=== PATIENT | female | born 1960 | race Caucasian/White ===

== ENCOUNTER 2018-08-29 09:46 | Emergency (ER) | payer OTHER ==
[2018-08-29 10:36] VITALS: BP 109/62
--- NOTE | 2018-08-29 10:59 | UC ---
Lower Extremity/Ankle HPI - HPI Summary HPI Summary: Pt presents with c/o left upper inner thigh "hard lump", erythema, tenderness that woke pt from sleep last night. Pt also reports that she has left posterior calf pain. Pt has "Lots of " lower extremity varicose veins and no hx of clotting disorder. Denies injury or recent travel. pt states that at work she either sits or stands for prolonged periods of time. - History of Current Complaint Chief Complaint: UCGeneralIllness Stated Complaint: LEFT THIGH COMPLAINT Time Seen by Provider: 08/29/18 10:40 Hx Obtained From: Patient ?: No Onset/Duration: Sudden Onset, Still Present Severity Initially: Moderate Severity Currently: Moderate Pain Intensity: 3 Aggravating Factor(s): Other - tough Alleviating Factor(s): Nothing Able to Bear Weight: Yes - Risk Factors Gout Risk Factors: Age Over 40, Obesity DVT Risk Factors: Smoking Septic Arthritis Risk Factor: Negative - Allergies/Home Medications Allergies/Adverse Reactions: Allergies Allergy/AdvReac Type Severity Reaction Status Date / Time Sulfa (Sulfonamide Allergy Rash Verified 08/29/18 10:33 Antibiotics) Home Medications: Home Medications Ibuprofen 600 mg PO Q12HR 08/29/18 [History Confirmed 08/29/18] Lisinopril 20 mg PO DAILY 08/29/18 [History Confirmed 08/29/18] Metformin HCl [Fortamet] 500 mg PO BID 08/29/18 [History Confirmed 08/29/18] Pravastatin Sodium 20 mg PO DAILY 08/29/18 [History Confirmed 08/29/18] PMH/Surg Hx/FS Hx/Imm Hx Previously Healthy: Yes - Surgical History Surgical History: Yes Surgery Procedure, Year, and Place: 2 C-SECTIONS. HYSTERECTOMY - Family History Known Family History: Positive: Cardiac Disease - Social History Occupation: Employed Full-time Lives: With Family Alcohol Use: Occasionally Substance Use Type: None Smoking Status (MU): Heavy Every Day Tobacco Smoker Amount Used/How Often: 1 PPD Have You Smoked in the Last Year: Yes Household Exposure Type: Cigarettes Review of Systems Constitutional: Negative Skin: Other - erythema Eyes: Negative ENT: Negative Respiratory: Negative Cardiovascular: Negative Gastrointestinal: Negative Genitourinary: Negative Motor: Negative Neurovascular: Negative Musculoskeletal: Calf Tenderness - left, Edema - left upper thigh Neurological: Negative Psychological: Negative Is Patient Immunocompromised?: No All Other Systems Reviewed And Are Negative: Yes Physical Exam Triage Information Reviewed: Yes Appearance: Well-Appearing Vital Signs: Initial Vital Signs Temp 98.3 F 08/29/18 10:29 Pulse 88 08/29/18 10:29 Resp 16 08/29/18 10:29 BP 109/62 08/29/18 10:29 Pulse Ox 96 08/29/18 10:29 Vital Signs Reviewed: Yes Eye Exam: Normal ENT Exam: Normal ENT: Positive: Hearing grossly normal Dental Exam: Normal Neck exam: Normal Respiratory Exam: Normal Respiratory: Positive: Normal breath sounds Cardiovascular Exam: Normal Musculoskeletal Exam: Other Musculoskeletal: Positive: Edema @ - left upper, inner thigh, varicose jhoana noted ~ 6 cm length, distal ende ~ 3 cm irregular circular area erythematous, firm mass that pt c/o of significant tenderneness when palpated, postive for posterior calf tenderness left posterior calf. Neurological Exam: Normal Psychological Exam: Normal Skin Exam: Normal - erythema Lower Extremity Course/Dx - Course Course Of Treatment: I discussed my concern for phlebitis and DVT with the pt and recommended that she follow up immediately at the ER. Pt verbalized understanding ad agreed to plan of care. - Differential Dx/Diagnosis Differential Diagnosis/HQI/PQRI: DVT, Phlebitis Provider Diagnoses: phlebitis. calf pain. concern for DVT - Physician Notifications Discussed Patient Care With: Dr. Ellis - accepted pt Time Discussed With Above Provider: 11:45 Discharge - Sign-Out/Discharge Documenting (check all that apply): Patient Departure All imaging exams completed and their final reports reviewed: No Studies - Discharge Plan Condition: Stable Disposition: HOME-RECOMMEND TO ED Patient Education Materials: Superficial Thrombophlebitis (ED), Leg Pain (ED) Referrals: [facility] [Outside] - If Needed No Primary Care Phys,NOPCP [Primary Care Provider] - Additional Instructions: Please follow with your PCP as soon as possible. It is recommended that you seek further and evaluation regarding your leg pain at the closest emergency room. - Billing Disposition and Condition Condition: STABLE Disposition: Home-Recommend to ED
== END 2018-08-29 11:09 | disposition home health service (06) ==
LOC: UCCORT 09:46
DX: M79.662 Pain in left lower leg (principal); I80.9 Phlebitis and thrombophlebitis of unspecified site; Z88.1 Allergy status to other antibiotic agents; F17.210 Nicotine dependence, cigarettes, uncomplicated
CPT/HCPCS: 99201; G0463